=== PATIENT | female | born 1995 | race Caucasian/White ===

== ENCOUNTER 2016-09-02 14:05 | Observation (INO) ==
[2016-09-02] MEDS ORDERED: IOPAMIDOL 100 ML BOTTLE IJ ONE (14:06)
--- NOTE | 2016-09-02 14:48 | Emergency Department Note ---
Abdominal Pain HPI - General Chief Complaint: Abdominal Pain Stated Complaint: ruq abdominal pain Time Seen by Provider: 09/02/16 14:39 Source: patient Mode of arrival: ambulatory Limitations: no limitations - History of Present Illness HPI Narrative: 21-year-old female with a history of right upper quadrant pain present for the past 48 hours. Patient is mostly intermittent, increasing at night time. States she last ate yesterday. nausea, but there's been no vomiting. There's been no diarrhea. Patient is afebrile. There is no CVA tenderness. Denies any urgency, frequency or dysuria - Related Data Home Medications Medication Instructions Recorded Confirmed No Known Home Meds [No Known Home 09/02/16 09/02/16 Meds] Allergies Allergy/AdvReac Type Severity Reaction Status Date / Time No Known Drug Allergies Allergy Verified 09/02/16 14:08 Review of Systems All systems ED: reviewed and negative except as stated. Constitutional: Denies: fever Eyes: Denies: eye pain ENT ED: Denies: ear pain Cardiovascular: Denies: chest pain Respiratory: Denies: cough Gastrointestinal: Denies: abdominal pain Genitourinary: Denies: urgency Musculoskeletal: Denies: back pain Integumentary: Denies: rash Neurological: Denies: headache Psychiatric: Denies: anxiety Endocrine: Denies: fatigue Hematological/Lymphatic: Denies: easy bleeding Allergic/Immunologic: Denies: facial swelling Abdominal Pain PMH - Past Medical History Medical history: Reports: non-contributory Family history: Reports: other (mother hypertension) - Social History Smoking status: Never smoker Alcohol use: Reports: Occasionally Drug use: Reports: none Physical Exam - General Limitations: no limitations General appearance: alert - Head Head exam: atraumatic - Eye Eye exam: Present: normal appearance, PERRL - ENT ENT exam: normal exam, normal oropharynx - Neck Neck exam: Present: normal inspection, full ROM - Chest Chest inspection: Present: normal inspection, symmetric chest wall rise - Respiratory Respiratory exam: Present: normal lung sounds bilaterally, respiratory distress - Cardiovascular Cardiovascular exam: Present: regular rate, normal rhythm - Abdominal Exam Abdominal exam: Present: soft. Absent: distention, tenderness - Extremities Exam Extremities exam: Present: normal inspection, full ROM - Back Exam Back exam: Present: normal inspection, full ROM - Neurological Exam Neurological exam: Present: alert, oriented X3, CN II-XII intact - Psychiatric Psychiatric exam: Present: normal affect. Absent: normal mood, depressed - Skin Skin exam: Present: warm, dry, intact Course Vital Signs Temperature 97.9 F 09/02/16 14:06 Pulse Rate 80 09/02/16 14:06 Respiratory Rate 12 09/02/16 14:06 Blood Pressure 129/70 09/02/16 14:06 Pulse Oximetry (%) 100 09/02/16 14:06 Temperature 97.9 F 09/02/16 14:06 Pulse Rate 74 09/02/16 16:30 Respiratory Rate 12 09/02/16 14:06 Blood Pressure 101/58 09/02/16 16:30 Pulse Oximetry (%) 100 09/02/16 16:30 Abdominal Pain - MDM Narrative Medical decision making narrative: wbc is 10,200 65 segs,28 lymphs. tender in rllq and ruq, US was neg. Ct shows 7mm with stranding. Dr Tafoya contacted. Pt NPO after midnight. admitt with rocmagalihin - Lab Data Result diagrams: 09/02/16 14:50 09/02/16 14:50 Lab Results 09/02/16 09/02/16 09/02/16 Range/Units 14:40 14:50 14:50 WBC 10.2 (4.5-11.0) K/mcL RBC 4.23 (4.00-5.20) M/mcL Hgb 12.9 (12.0-15.0) g/dL Hct 38.2 (36.0-48.0) % MCV 90.4 (80.0-100.0) fL MCH 30.5 (26.0-34.0) pg MCHC 33.7 (31.0-36.0) g/dL RDW 12.1 (11.5-14.5) % Plt Count 210 (140-440) K/mcL MPV 9.0 (7.4-10.4) fL Total Counted 100 Seg Neutrophils % 65 (38-78) % Band Neutrophils % Not Reportable Lymphocytes % 28 (15-49) % Monocytes % (Manual) 6 (1-9) % Reactive Lymphocytes 1 (0-2) % Platelet Estimate Normal (NORMAL) RBC Morphology Normal (NORMAL) Sodium 134 (133-145) mmol/L Potassium 3.7 (3.3-5.1) mmol/L Chloride 97 (96-108) mmol/L Carbon Dioxide 23 (22-30) mmol/L Anion Gap 14.0 (8-16) BUN 9 (6-20) mg/dl Creatinine 0.7 (0.6-1.1) mg/dl GFR Calculation 123 Glucose 76 (70-105) mg/dL Calcium 9.0 (8.6-10.4) mg/dl Total Bilirubin 1.2 H (0.0-1.0) mg/dL AST 18 (0-37) U/l ALT 9 (0-40) U/l Alkaline Phosphatase 64 (39-117) U/L Total Protein 7.2 (5.9-8.4) gm/dL Albumin 4.7 (3.2-5.2) gm/dL Globulin 2.5 (2.2-3.7) gm/dL Albumin/Globulin Ratio 1.9 (1.0-2.3) Lipase (7-60) U/L Urine Color Straw Urine Appearance Clear Urine pH 6.0 (5.0-9.0) Ur Specific Burden 1.011 (1.000-1.035) Urine Protein Neg (NEG) mg/dL Urine Glucose (UA) Negative (NEG) mg/dL Urine Ketones 5/tr A (NEG) mg/dL Urine Occult Blood Neg (<0.03) mg/dL Urine Nitrate Neg (NEG) Urine Bilirubin Neg (NEG) mg/dL Urine Urobilinogen Neg (NEG) mg/dL Ur Leukocyte Esterase Neg (NEG) /uL Urine RBC 1 (0-1) /hpf Urine WBC < 1 (0-4) /hpf Ur Squamous Epith Cells < 1 (0-4) /hpf Urine Bacteria 0 (0) /hpf Urine Mucus Few (0) /hpf Ur Culture Indicated? No 09/02/16 Range/Units 14:50 WBC (4.5-11.0) K/mcL RBC (4.00-5.20) M/mcL Hgb (12.0-15.0) g/dL Hct (36.0-48.0) % MCV (80.0-100.0) fL MCH (26.0-34.0) pg MCHC (31.0-36.0) g/dL RDW (11.5-14.5) % Plt Count (140-440) K/mcL MPV (7.4-10.4) fL Total Counted Seg Neutrophils % (38-78) % Band Neutrophils % Lymphocytes % (15-49) % Monocytes % (Manual) (1-9) % Reactive Lymphocytes (0-2) % Platelet Estimate (NORMAL) RBC Morphology (NORMAL) Sodium (133-145) mmol/L Potassium (3.3-5.1) mmol/L Chloride (96-108) mmol/L Carbon Dioxide (22-30) mmol/L Anion Gap (8-16) BUN (6-20) mg/dl Creatinine (0.6-1.1) mg/dl GFR Calculation Glucose (70-105) mg/dL Calcium (8.6-10.4) mg/dl Total Bilirubin (0.0-1.0) mg/dL AST (0-37) U/l ALT (0-40) U/l Alkaline Phosphatase (39-117) U/L Total Protein (5.9-8.4) gm/dL Albumin (3.2-5.2) gm/dL Globulin (2.2-3.7) gm/dL Albumin/Globulin Ratio (1.0-2.3) Lipase 20 (7-60) U/L Urine Color Urine Appearance Urine pH (5.0-9.0) Ur Specific Burden (1.000-1.035) Urine Protein (NEG) mg/dL Urine Glucose (UA) (NEG) mg/dL Urine Ketones (NEG) mg/dL Urine Occult Blood (<0.03) mg/dL Urine Nitrate (NEG) Urine Bilirubin (NEG) mg/dL Urine Urobilinogen (NEG) mg/dL Ur Leukocyte Esterase (NEG) /uL Urine RBC (0-1) /hpf Urine WBC (0-4) /hpf Ur Squamous Epith Cells (0-4) /hpf Urine Bacteria (0) /hpf Urine Mucus (0) /hpf Ur Culture Indicated? Disposition Clinical Impression: Appendicitis Summary: possible acute abdomen Disposition: Xfer As Inpt ([facility]) Referrals: [Primary Care Provider] -
[2016-09-02 15:21] LABS: Appearance,Urine CLEAR; Bacteria,Urine 0 /hpf (0); Bilirubin,Urine NEG (NEG); Color,Urine STRAW; Glucose,Urine (UA) NEGATIVE (NEG); Leukocyte Esterase,Urine NEG /uL (NEG); Mucus,Urine FEW /hpf (0); Nitrate,Urine NEG (NEG); Protein,Urine NEG (NEG); Specific Gravity,Urine 1.011 (1.000-1.035); Urine Blood NEG mg/dL (<0.03); Urine RBC 1 /hpf (0-1); Urine Squamous Epithelial Cell < 1 /hpf (0-4); Urine WBC < 1 /hpf (0-4); Urobilinogen,Urine NEG (NEG)
[2016-09-02 15:52] LABS: Mean Cell Volume 90.4 fL (80.0-100.0); Mean Corpuscular HGB Conc 33.7 g/dL (31.0-36.0); Mean Corpuscular Hemoglobin 30.5 pg (26.0-34.0); Platelet Count 210 K/mcL (140-440); RBC 4.23 M/mcL (4.00-5.20); Red Cell Distribution Width 12.1 % (11.5-14.5)
[2016-09-02 16:04] LABS: Lipase 20 U/L (7-60)
[2016-09-02 16:10] LABS: ALT/SGPT 9 U/l (0-40); Albumin 4.7 gm/dL (3.2-5.2); Albumin/Globulin Ratio 1.9 (1.0-2.3); Alkaline Phosphatase 64 U/L (39-117); Blood Urea Nitrogen 9 mg/dl (6-20)
[2016-09-02 16:46] LABS: Lymphocytes % 28 % (15-49); Monocytes % (Manual) 6 % (1-9); Platelet Estimate NORMAL (NORMAL); RBC Morphology NORMAL (NORMAL); Segmented Neutrophils % 65 % (38-78)
--- NOTE | 2016-09-02 17:16 | Ultrasound Report ---
CLINICAL INFORMATION: ] Right upper quadrant pain COMPARISON: None. FINDINGS: The gallbladder and bile ducts, liver, both kidneys, pancreas, spleen, aorta and inferior vena cava are all normal in size and echotexture without focal abnormality. No free fluid identified. IMPRESSION: Normal abdominal ultrasound. Interpreted and Authenticated by: Owen Hendrickson 09/02/16
--- NOTE | 2016-09-02 18:48 | Cat Scan Report ---
CLINICAL INFORMATION: Right-sided abdominal pain COMPARISON: None. TECHNIQUE: Following enteric contrast, 80 cc of Isovue-300 were injected intravenously, and 60 seconds later, 2.5 mm helical slices were obtained from the mid heart through the subtrochanteric regions. Following reconstruction, 2.5 mm sagittal, coronal and axial reformatted images were processed and reviewed at bone, lung and soft tissue windows. Five minutes later, 5 mm helical slices were obtained from the mid heart through the kidneys and viewed at soft tissue windows. FINDINGS: Lung bases show no abnormality - no effusion visualized heart is unremarkable. Images should the abdomen show minimal fatty change within the liver but no focal lesion. The gallbladder and bile ducts are normal - CBD is 6 mm. Both kidneys, adrenal glands, spleen, pancreas and aorta, including aortic branches are normal in size configuration and attenuation without focal lesion. Images should the pelvis show urinary bladder to be unremarkable. IUD is in satisfactory position endometrial cavity. Uterus is anteflexed and normal in size measuring 8.8 x 4 cm. There is a 3.4 cm simple cyst on the right ovary. The left ovary is normal. Small amount of free fluid is noted deep true pelvis The appendix is quite high in position and located in the retrocecal region of the mid right flank. The appendix is mildly dilated - 7 mm diameter with only minimal equivocal wall thickening. There there is mild inflammatory stranding in the periappendiceal fat. The stomach, small and large bowel are unremarkable. Bone windows show no osseous abnormality. IMPRESSION: 1. Suspect simple appendicitis. The appendix is retrocecal. Both appendix and cecum are superiorly positioned within the right mid flank. 2. 3.4 mm simple cyst right ovary. IUD in satisfactory position - endometrial cavity - uterus otherwise normal Interpreted and Authenticated by: Owen Hendrickson 09/02/16
[2016-09-02] MEDS ORDERED: ONDANSETRON 4 MG/2 ML VIAL IV PRN (18:56)
[2016-09-02] MEDS ORDERED: cefTRIAXone 1 GM in DEXTROSE 5% IN WATER 50 ML IV SCH (19:00)
[2016-09-02] MEDS ORDERED: HYDROmorphone 2 MG/ML SYRINGE IV PRN (19:57)
[2016-09-02] MEDS: 0.9 % SODIUM CHLORIDE 1,000 ML IV SCH (20:45)
[2016-09-02] MEDS ORDERED: cefTRIAXone 1 GM VIAL ONE (20:57)
[2016-09-02] MEDS: cefTRIAXone 1 GM in DEXTROSE 5% IN WATER 50 ML IV SCH (22:02)
[2016-09-03] MEDS: 0.9 % SODIUM CHLORIDE 1,000 ML IV SCH (08:46)
[2016-09-03 09:18] LABS: Basophils # (Auto) 0 K/mcL (0.0-0.3); Basophils % (Auto) 0.2 % (0.0-2.0); Eosinophils # (Auto) 0 K/mcL (0.0-0.7); Eosinophils % (Auto) 0.3 % (0.0-7.0); Granulocytes % (Auto) 77.4 % (38.0-78.0); Lymphocytes # (Auto) 1.3 K/mcL (1.5-4.8); Lymphocytes % (Auto) 15.5 % (15.5-49.0); Mean Cell Volume 91.1 fL (80.0-100.0); Mean Corpuscular HGB Conc 33.6 g/dL (31.0-36.0); Mean Corpuscular Hemoglobin 30.6 pg (26.0-34.0); Monocytes # (Auto) 0.6 K/mcL (0.1-0.9); Monocytes % (Auto) 6.6 % (1.0-9.0); Platelet Count 203 K/mcL (140-440); RBC 3.93 M/mcL (4.00-5.20); Red Cell Distribution Width 11.9 % (11.5-14.5)
[2016-09-03 09:59] LABS: Erythrocyte Sedimentation Rate 16 mm/hr (0-20)
--- NOTE | 2016-09-03 10:46 | General Surg History&Physical ---
History of Present Illness Patient information: Note initiated : 09/03/16 at 10:43 am Service Date, if different from initiated Date: [] Patient: Bella Owens 21 y/o F admitted on 09/02/16 for RUQ Abdominal Pain/ Appendicitis. Chief Complaint: [] HPI: Ms. Owens is a 21 year old female with abdominal and flank pain on the right side.the patient has a three-day history of pain in the right flank. She has had increased pain with touch of the area but does not have much pain otherwise. She has no right upper quadrant or right lower quadrant pain. She has some nausea initially but that is now resolved. She states that she is actually better today than she was last night. Her bowel movements have been soft. Her last normal menstrual period was 2 weeks ago.she was seen in the emergency room last evening with normal vital signs, no temperature elevation; normal white blood count; and equivocaldilation of the appendix. The appendix was 7 mm with minimal tissue stranding however there is free gas in the appendiceal lumen. Her morning white count has decreased to 8.5 and her sedimentation rate is normal at 16. Past History Past medical history: no chronic medical illness Past surgical history: no surgical procedure Past family history: mother age 60 with hypertensi and breast cancer Father age 56 with diabetes mellitus Brother age 24 alive and well Past social history: lives locally Employed Single with no children Nevers tobacco user Never drug user Drinks occasional wine or beer Medications and Allergies Home Medications Medication Instructions Recorded Confirmed Type No Known Home Meds [No Known Home 09/02/16 09/02/16 History Meds] Allergies Allergy/AdvReac Type Severity Reaction Status Date / Time No Known Drug Allergies Allergy Verified 09/02/16 14:08 Exam Temp Pulse Resp BP Pulse Ox 98.6 F 76 22 112/73 96 09/03/16 07:39 09/03/16 07:39 09/03/16 07:39 09/03/16 07:39 09/03/16 09:51 - General physical appearance well developed, well nourished, no distress - Eyes PERRL, normal ocular movement - ENT normal pinna, normal nares, normal mucosa, no hearing loss, no congestion - Head Head exam IM: Present: atraumatic, normocephalic - Neck no masses, no bruits, trachea midline, no lymphadectomy, no venous distension - Cardiovascular Cardiovascular exam IM: Present: normal rate and rhythm - Respiratory normal expansion, normal respiratory effort, clear to percussion, clear to auscultation - Abdomen Abdomen: Present: soft, tender (minimal tenderness in the lateral right flank without guarding or rebound; no right upper quadr or right lower quadrant tenderness; normal bowel sounds), bowel sounds Hernia: Present: none - Integumentary Present: no rash, no growths, no abnormal pigmentation - Neurologic Present: normal coordination, normal sensation - Musculoskeletal Present: normal gait, normal posture - Psychiatric Present: oriented to time, oriented to person, oriented to place, speech is normal, memory intact Assessment and Plan (1) Acute right flank pain Status: Acute
[2016-09-03] MEDS: cefTRIAXone 1 GM in DEXTROSE 5% IN WATER 50 ML IV SCH ×2 (13:21→15:54)
--- NOTE | 2016-09-04 08:54 | Discharge Summary ---
Providers - Providers Patient information: Note initiated : 09/04/16 at 8:52 am Service Date, if different from initiated Date: [] Patient: Bella Owens 21 y/o F admitted on 09/02/16 for RUQ Abdominal Pain/ Appendicitis. Chief Complaint: [] Date of admission: 09/02/16 Discharge date: 09/04/16 Attending physician: Aisha Tafoya Hospitalization Hospital course: 21-year-old female admitted with atypical right flank and right upper quadrant and right lower quadrant pain. Patient did not have fever or leukocytosis. She was given a diagnosis of acute appendicitis however her clinical exam was felt to be more compatible with ruptured ovarian cyst or possibly salpingitis though this was not cliically apparent on CT. She was admitted for observation and monitored to make sure that she indeed did not have appendicitis. She has done well overni and most of her symptoms have resolved. She is now stable for discharge home and will be followed up as an outpatient if her symptoms should recur. Discharge diagnosis: right sided abdominal pain etiology unknown Reason for admission: undiagnosed right-sided abdominal pain Procedures: none Pertinent studies/significant findings: CT of abdomen and pelvis with contrast Complications: none Exam Temp Pulse Resp BP Pulse Ox 97.8 F 100 H 16 103/66 99 09/04/16 06:56 09/04/16 06:56 09/04/16 06:56 09/04/16 06:56 09/04/16 06:56 - Neck no masses, no venous distension - Cardiovascular Cardiovascular exam IM: Present: normal rate and rhythm, RRR, +S1, +S2 - Respiratory normal expansion, normal respiratory effort, clear to auscultation - Abdomen Abdomen: Present: soft, non tender, bowel sounds, distended (abdomen is soft and nondistended with minimal tenderness that she had on yesterday has resolv. She has good active bowel sounds.) - Integumentary Present: no rash - Neurologic Present: normal coordination, normal sensation - Musculoskeletal Present: normal gait - Psychiatric Present: oriented to time, oriented to person, oriented to place, speech is normal, memory intact Discharge Plan - Patient/Caregiver Discharge Instructions Activity: increase activity as tolerated Diet: Regular Diet Additional Instructions: Increase activity as tolerated Regular diet Return to emergency room if your pain should recur. Follow up with Dr[facility] at [facility] [phone]. Prescriptions: Levofloxacin [Levaquin] 750 mg PO DAILY #7 tablet - Follow up Plan Follow up with: Calista Nelson [Primary Care Provider] - Disposition: Home, Self-Care Prognosis: Good Rehab Potential: Good I certify that the patient requires SNF services.: No Overall status at discharge: patient is back to baseline Pending Studies Resuscitation Status Full Code Diet Full Liquid Diet Start TueSep 03 Lunch Ceftriaxone Sodium 1 gm/ (Dextrose) 50 mls @ 100 mls/hr IV DAILY MINESH Last Admin: 09/03/16 15:54 Dose: 100 mls/hr Admin: 09/02/16 22:02 Dose: Not Given Shift Summary 09/04/16 01:48 Shift Summary by Constance Chin Patient up ad bladimir in room. No c/o of abd pain or nausea tonight. A small amount of tenderness when palpating RUQ. Has one ABO due this AM and will be able to go home. Initialized on 09/04/16 01:48 - END OF NOTE
[2016-09-04] MEDS: cefTRIAXone 1 GM in DEXTROSE 5% IN WATER 50 ML IV SCH (09:54)
== END 2016-09-04 09:58 | disposition home or self-care (01) ==
LOC: MEDSUR 14:05 → ED 14:05 → MEDSUR 19:55
PROVIDERS: ADMIT Family Medicine Adult Medicine; ATTEND Family Medicine Adult Medicine